=== PATIENT | female | born 1960 | race Caucasian/White ===

== ENCOUNTER 2017-07-11 07:11 | Day surgery (SDC) | payer MEDICAID ==
[2017-07-11 07:48] VITALS: BMI 28.3
[2017-07-11] MEDS ORDERED: Propofol 10 mg/ml Inj (20 ML) ONE (10:21)
[2017-07-11] MEDS ORDERED: Lidocaine Hydrochloride 5 ML INJ ONE (10:21)
[2017-07-11] MEDS ORDERED: Lactated Ringer's 1,000 ML IV ONE (10:40)
[2017-07-11 13:48] VITALS: BP 122/79; PULSE 72; RESP 18; TEMP 97.2; O2SAT 99
== END 2017-07-11 12:20 | disposition home or self-care (01) ==
LOC: C.ENDO 07:11
PROVIDERS: ATTEND Internal Medicine Gastroenterology
DX: K29.50 Unspecified chronic gastritis without bleeding (principal); R11.2 Nausea with vomiting, unspecified; Z98.84 Bariatric surgery status
CPT/HCPCS: 43239; 82948; 88305; J2704; J7120

== ENCOUNTER 2018-10-20 07:28 | Outpatient (CLI) | payer MEDICARE, MEDICAID | END 2018-10-20 07:29 | disposition home or self-care (01) | LOC: C.PAT 07:28 | DX: L72.3 Sebaceous cyst (principal); D17.9 Benign lipomatous neoplasm, unspecified ==

== ENCOUNTER 2018-10-29 08:38 | Day surgery (SDC) | payer MEDICARE, MEDICAID ==
[2018-10-29 09:30] VITALS: BMI 27.8
[2018-10-29] MEDS ORDERED: ceFAZolin 1 gm in NS 1 GM/100 ML BAG IVPB ONE (10:07)
[2018-10-29] MEDS ORDERED: Lidocaine/Epinephrine 1% 1:100000 10 ML IJ ONE ×2 (10:07→11:28)
[2018-10-29] MEDS ORDERED: Bupivacaine HCl 0.25% PF (10 ml) Inj ONE ×2 (10:07→11:28)
[2018-10-29] MEDS ORDERED: Midazolam 2 MG/2 ML VIAL ONE ×4 (11:14→11:50)
--- NOTE | 2018-10-29 12:35 | PCM.SURG1 ---
Surgeon's Initial Post Op Note - Surgeon's Notes Surgeon: Dr. Brower Vamp Marker: Karthik PGY2 Type of Anesthesia: IV Sedation, Local Anesthesia Administered By: Dr. Maxwell Pre-Operative Diagnosis: Left Upper Back Sebaceous Cyst; Left Gluteal Mass; Right Gluteal Mass Operative Findings: See operative report Post-Operative Diagnosis: Same Operation Performed: Excision of Left Upper Back Sebaceous cyst, Left Gluteal Mass, Rigth Gluteal Mass. Specimen/Specimens Removed: Left upper back sebaceous cyst; Left Gluteal Mass with skin; Right Gluteal Mass with skin Estimated Blood Loss: EBL {In ML}: 20 Blood Products Given: N/A Drains Used: No Drains Post-Op Condition: Good Date of Surgery/Procedure: 10/29/18 Time of Surgery/Procedure: 12:36
[2018-10-29] MEDS: HYDROmorphone 0.5 mg/0.5 ml ISec IVP PRN ×2 (12:40→12:58)
[2018-10-29 15:45] VITALS: RESP 18
[2018-10-29 15:47] VITALS: BP 116/72; PULSE 90; TEMP 97.6; O2SAT 97
--- NOTE | 2018-11-02 04:00 | OP ---
PROCEDURE DATE: 10/29/2018 PREOPERATIVE DIAGNOSES: 1. Right gluteal mass. 2. Left gluteal mass. 3. Left upper back sebaceous cyst. POSTOPERATIVE DIAGNOSES: 1. Right gluteal mass. 2. Left gluteal mass. 3. Left upper back sebaceous cyst. PROCEDURES DONE: 1. Excision of the right gluteal mass, 5 x 3 cm size. 2. Excision of the redundant skin of the right gluteal area, 5 x 2 cm. 3. Layered closure of the right gluteal wound, approximately 5 x 6 x 3 cm size. 4. Excision of the left gluteal mass, 5 x 4 cm size. 5. Excision of the redundant skin and subcutaneous tissue of the left gluteal area, 5 x 1 cm size. 6. Layered closer of the wound of the left gluteal area, 5 x 4 x 2 cm size. 7. Excision of the left upper back sebaceous cyst. 8. Layered closure of the wounds on both, 3 x 3 x 2 cm size of left upper back. SURGEON: Case Brower MD ANESTHESIA: Local anesthesia plus sedation. ESTIMATED BLOOD LOSS: Around 20 mL. DRAIN: None. PATHOLOGY: All gluteal masses as well as the redundant skin as well as the left upper back sebaceous cysts were sent for the pathology. COMPLICATIONS: None. INTRAOPERATIVE FINDINGS: The patient had irregular shaped hard right gluteal mass as well as the irregular shaped hard left gluteal mass, and the patient had a left upper back sebaceous cyst. DESCRIPTION OF PROCEDURE: On intraoperative steps, this is a 58-year-old female who was diagnosed with left gluteal mass as well as the left sebaceous cyst, and the patient also had a right gluteal mass. The patient was consented for the excision of the all gluteal masses as well as the sebaceous cyst. The patient was consented for the procedure, brought to the OR, placed in the prone positio. Mild sedation was given. The airway was protected. Local anesthesia was injected surrounding the left and right gluteal mass areas as well as the left upper back sebaceous cyst. After the proper prepping and draping before giving the anesthesia, an elliptical incision was made surrounding the right gluteal mass. The mass appeared to be extremely thick and irregular shape, and the whole mass was completely excised. The incision was extended. Proper hemostasis was achieved. The surrounding skin and subcutaneous tissue was also excised to prevent the seroma as well as the fluid collection postoperatively. After that, the wound was closed in a multiple layer. The upper and lower flaps were sutured to the underlying subcu as well as the fascia, the deep subcu with a 3-0 Vicryl and superficial subcu with a 4-0 Monocryl. Dry sterile dressing was applied. Now, the left gluteal area mass elliptical incision was made. The upper and lower flaps were created. The mass was completely excised. The mass was irregular shape, thickened and very hard. The mass was sent off the table for the pathology. Now, the surrounding skin and subcu tissue again was excised to prevent the seroma as well as the wound infection. The wound was closed in a multiple layer, the deep subcu with a 3-0 Vicryl, the lower flap with the underline fascia was sutured with a 2-0 Vicryl and superficial subcu layer with a 3-0 Vicryl, skin with a 4-0 Monocryl. Dry sterile dressing was applied. Now, the left upper sebaceous cyst was excised by clipping the elliptical incision. The upper and lower flaps were created. The sebaceous cyst was completely excised, and it was sent off the table for the pathology. There was a proper hemostasis in each and every part of the procedure. The wound was closed, deep subcu with a 2-0 Vicryl, superficial subcu with a 0 Vicryl and skin with a 4-0 Monocryl. Dry sterile dressing was applied. The patient was reversed from sedation and sent to the postanesthesia care unit in stable condition. Case Brower MD
== END 2018-10-29 14:30 | disposition home or self-care (01) ==
LOC: C.SDS 08:38
PROVIDERS: ATTEND Surgery Surgical Critical Care
DX: L72.3 Sebaceous cyst (principal); R92.2 Inconclusive mammogram
CPT/HCPCS: 11406; 12034; 13101; 13102; 82948; 88307; J0690; J1170; J2250; J2405; J3010